=== PATIENT | female | born 1975 | race American Indian/Alaskan Native ===

== ENCOUNTER 2020-12-06 15:05 | Outpatient (CLI) | payer OTHER ==
--- NOTE | 2020-12-06 16:04 | XRay Report ---
LEFT SHOULDER 3 VIEWS INDICATION: INJURY. COMPARISON: None. IMPRESSION: No acute osseous or soft tissue abnormality. No significant DJD. Signer Name: Baldomero Valverde Jr, MD Signed: 12/06/2020 4:00 PM Workstation Name: [id number]
== END 2020-12-06 15:06 | disposition home or self-care (01) ==
LOC: XRAY 15:05
PROVIDERS: ATTEND Orthopaedic Surgery
DX: M25.512 Pain in left shoulder (principal)